=== PATIENT | female | born 1950 | race Caucasian/White ===

== ENCOUNTER 2017-03-25 15:02 | Emergency (ER) | payer BC | END 2017-03-25 16:53 | disposition home or self-care (01) | LOC: ER 15:02 | DX: S90.31XA Contusion of right foot, initial encounter (principal); F03.90 Unspecified dementia, unspecified severity, without behavioral disturbance, psychotic disturbance, mood disturbance, and anxiety; F10.99 Alcohol use, unspecified with unspecified alcohol-induced disorder; E11.9 Type 2 diabetes mellitus without complications; Z88.2 Allergy status to sulfonamides; X58.XXXA Exposure to other specified factors, initial encounter; Y93.89 Activity, other specified; Y92.89 Other specified places as the place of occurrence of the external cause; Y99.8 Other external cause status ==

== ENCOUNTER → 2017-05-08 | Outpatient (CLI) | payer BC, OTHER | LOC: MRI 08:18 | DX: R41.82 Altered mental status, unspecified (principal); I10 Essential (primary) hypertension; E11.9 Type 2 diabetes mellitus without complications; E78.5 Hyperlipidemia, unspecified; F03.90 Unspecified dementia, unspecified severity, without behavioral disturbance, psychotic disturbance, mood disturbance, and anxiety ==

== ENCOUNTER 2018-07-01 13:46 | Emergency (ER) | payer OTHER, BC ==
[~2018-07-01] VITALS: Ht 160 cm; Wt 69.8 kg
[2018-07-01 15:22] VITALS: BP 129/77
== END 2018-07-01 15:26 | disposition home or self-care (01) ==
LOC: ER 13:46
DX: S09.90XA Unspecified injury of head, initial encounter (principal); M25.511 Pain in right shoulder; F03.90 Unspecified dementia, unspecified severity, without behavioral disturbance, psychotic disturbance, mood disturbance, and anxiety; E11.9 Type 2 diabetes mellitus without complications; Z88.2 Allergy status to sulfonamides; W18.39XA Other fall on same level, initial encounter; Y93.01 Activity, walking, marching and hiking; Y92.481 Parking lot as the place of occurrence of the external cause; Y99.8 Other external cause status

== ENCOUNTER 2019-02-18 17:40 | Inpatient (IN) | payer BC, OTHER ==
[~2019-02-18] VITALS: Ht 165.1 cm; Wt 63.6 kg
[2019-02-18 17:50] VITALS: BP 145/78
[2019-02-18 19:21] LABS: ABSOLUTE NEUTROPHILS 3.2 thou/uL (1.4-8.2); BASOPHILS 1.5 % (0.0-2.0); EOSINOPHILS 1.8 % (0.0-3.0); HEMOGLOBIN 13.2 gm/dL (12.0-15.0); LYMPHOCYTES 29.2 % (24.0-44.0); MCH 32.1 pg (26.0-34.0); MCHC 34.7 g/dL (28.0-37.0); MCV 92.6 fL (80.0-100.0); MONOCYTES 7.8 % (1.0-8.0); PLATELET COUNT 266 thou/uL (150-400); POLYS 59.7 % (36.0-66.0); WBC 5.4 thou/uL (4.0-11.0)
[2019-02-18 19:24] LABS: CALCIUM 9.5 mg/dL (8.5-10.1); CREATININE 1.4 mg/dL (0.6-1.0); POTASSIUM 3.8 mmol/L (3.5-5.1)
[2019-02-18 22:38] LABS: URINE BILIRUBIN NEGATIVE (Negative); URINE BLOOD TRACE (Negative); URINE CLARITY CLEAR; URINE COLOR YELLOW; URINE GLUCOSE-RANDOM* NEGATIVE (Negative); URINE KETONES NEGATIVE (Negative); URINE LEUKOCYTES-REFLEX TRACE (Negative); URINE NITRITE-REFLEX NEGATIVE (Negative); URINE PROTEIN (DIPSTICK) NEGATIVE (Negative); URINE SPECIFIC GRAVITY <= 1.005 (1.005-1.035); URINE UROBILINOGEN 0.2 E.U./dl (0.2-1.0)
[2019-02-18 22:42] LABS: AMP/METHAMP Negative (Negative); BARBITURATES Negative (Negative); BENZODIAZEPINES Negative (Negative); COCAINE Negative (Negative); METHADONE Negative (Negative); OPIATES Negative (Negative); PCP Negative (Negative)
[2019-02-18 23:37] VITALS: BP 135/81
[2019-02-19 00:04] VITALS: BP 141/80
[2019-02-19] MEDS ORDERED: AMLODIPINE BESY10 MG PO (00:05)
[2019-02-19] MEDS ORDERED: ASPIR 8181 MG PO (00:18)
[2019-02-19] MEDS ORDERED: VITAMIN B-121000 MCG PO (00:20)
[2019-02-19] MEDS ORDERED: DETROL LA4 MG PO (00:24)
[2019-02-19] MEDS ORDERED: ARICEPT 5 MG TAB5 MG PO (00:26)
[2019-02-19] MEDS ORDERED: HYDROCHLOROTH12.5 M1 PO (00:27)
[2019-02-19] MEDS ORDERED: JANUVIA100 MG PO (00:29)
[2019-02-19] MEDS ORDERED: COZAAR 25 MG TA25 M1 PO (00:31)
[2019-02-19] MEDS ORDERED: NAMENDA 10 MG T10 MG PO (00:34)
[2019-02-19] MEDS ORDERED: SENNA8.6 MG PO (00:37)
[2019-02-19] MEDS ORDERED: ZOLOFT50 MG PO (00:39)
[2019-02-19] MEDS ORDERED: TRAZODONE HCL50 MG PO ×2 (00:41→00:42)
[2019-02-19] MEDS ORDERED: APAP650 PO (00:44)
[2019-02-19 01:05] VITALS: BP 141/80
--- NOTE | 2019-02-19 01:20 | NUR ---
ADMISSION NOTE: ARRIVED ON THE UNIT VIA WHEELCHAIR AND ER PERSONNEL. ASSISTED THE PT TO THE BED, ALERT ET CONFUSED AT TIMES. THE PT IS HERE WITH AGGRESSIVE BEHAVIOR AND ALZHEIMERS. THE PT HAS BEEN CALM ET COOPERATIVE WITH STAFF THIS AM. THE PT HAD BEEN AT [facility] PRIOR TO COMING HERE, SHE HAS BEEN HAVING COMBATIVE BEHAVIORS, SWINGING AND KICKING AT THE STAFF AT [facility]. SHE HAS BEEN RESISTIVE TO CARE FOR THE LAST MONTH. SHE HAS NOT BEEN EATING WELL FOR THE PAST MONTH. SHE WILL NOT ALLOW ANY HELP. SHE SEES A PSCHIATRIST EVERY 3 MONTHS, WHO IS DR. KENYA ANGELA, . SHE HAS BEEN FAIRLY HEALTHY. SHE HAD AN HISTORY OF A BRIEF PSYCHOTIC D/O IN MAR 2017 AND WAS AT [facility] FOR A SHORT TIME. SHE SEES DR. COLIN CHAMBERS. SHE HAS NOT FALLEN WITHIN THE LAST 30 DAYS. SHE IS A FALL RISK. HEART RATE REGULAR, LUNGS CLEAR BILATERALLY, RESP., EVEN, AND UNLABORED. +BS HEARD IN ALL 4 QUADRANTS. ABD SOFT ET NONTENDOR. +PP BILATERALLY. DENIES PAIN AT THIS TIME. STARTED ON 12 MINUTE CHECKS.
[2019-02-19] MEDS ORDERED: SENOKOT-S TABL1 EACH PO (05:57)
[2019-02-19] MEDS ORDERED: NAMENDA XR28 MG PO (06:00)
--- NOTE | 2019-02-19 06:32 | NUR ---
THE PT REFUSED TO TAKE HER AM MEDICATIONS THIS AM. THE PT SLEPT 3.8 HOURS LAST NIGHT.
--- NOTE | 2019-02-19 12:03 | NUR ---
PSYCHOSOCIAL ASSESSMENT Diagnosis: DEMENTIA W/BEHAVIORAL DISTRUBANCES W/ VIOLENT BEH Admit Date: 02/18/19 Psychiatrist: LAYO Symptoms associated with current admission: Violence/aggression Anxiety/panic Activity level change Depressed mood Labile mood/jacobo Appetite change Sleep disturbance Presenting problems: Pt was refusing care from [facility] staff. Pt was refusing assisting with ADl's Care, and medication. Pt kicked staff, and very combatative Precipitating Factors: Non-compliance psychothx Comments: Pt feels shame that she has to recieve assistance with care. History of High Risk Behavors: Hx violence/aggression Suicide Risk Factors: E A-Signs of alcohol/substance abuse w/ suicide ideation B-Recent suicidal thoughts or attempts C-Recent thoughts or attempts of harming someone else D-Altered mental status due to psychiatric/chem dep etiology E-The behavior exists - add comment PSYCHIATRIC HISTORY Age of onset: 68 Prior hospitalizations: 1-2 times hospitalized Hospital names and dates, if available: [facility] 2017 Most Recent Outpatient HX: Psychiatrist Additional information: Legal Status: DPOA Guardian/Conservatorship type: DPOA Contact name: Emerita Drummond Contact phone: [phone] Other: Name: Phone: Other legal issues: (Arrests/convictions Current Status) None P.O. Name and Phone #: FAMILY HISTORY Place of : [place], [place] Raised in: [place] # Siblings & order: Pt has two sibilings, eldest Describe relationships within family of origin: Pt is close to her sibilings, children, and Any psychiatric or substance abuse problems within family of origin: Y Has patient been sexually or physically abused, neglected or been taken advantage of financially? N Has the abuse been reported? N Other pertinent family information: Marital history/significant relationships: Domestic violence: Y Children ages & who is caring for them: Pt has one adult child Is child welfare involved? N Drug history: Pt has in the past had an alcohol addiction Alcohol Use: Frequency: Quantity: Have you ever felt you ought to Cut down on drinking? Have people Annoyed you by criticizing your drinking? Have you ever felt bad or Guilty about your drinking? Have you ever had a drink first thing in the morning to steady your nerves/get rid of a hangover(Eye beamster) CAGE TOTAL If CAGE score is 3 or more, notify provider for withdrawal orders! AXIS SCREENING TOOL Austin I Mood Disorders: Depression Austin II Personality/Mental Retardation: Austin III Medical Impairment: Constipation Dehydration DM HTN Hypothyroidism UTI Alzheimer's Austin IV Problem(s) with: Health care services Other psych/environ prob Austin V: 40-Major impairment Additional Austin comments: PERSONAL BACKGROUND Relevant cultural issues (ethnicity, values, beliefs, spiritual): Spiritual Christian: Episcopal Importance of gnosticist to patient: High What hobbies/interests does the patient have? Photography sew listen music paintings Cycling Sexual orientation (relevant impact to current treatment): Heterosexual : Where did you serve: Branch of service: Rank: Discharge status: Are you a combat ? Occupational/Work: Do you work? N Do you want to work? N How many hours do you work/week? 0 How many jobs have you had in the past 5 years? 0 Do you need assistance finding a job? N Does the patient need assistance in job training? N Source of income: Other SSA Does patient have a Payee? Y Payee name: Emerita Drummond Approximate monthly income: 1000 Does patient have adequate funds for next 30 days? Y Education background: Bachelor degree Highest grade completed: 12th grade Other Educational/training programs: Functional deficits: Explain functional deficits: Current living situation: Facility (B&C, SNF,ILF) Address/phone where pt. is living: [facility] Does the patient plan to continue there after DC? Yes Patient lives with: Unrelated adult Will family/significant other be involved in treatment? Other community support services utilized: Memory care setting Support System Available (family/friend) Name: Dario Drummond Relationship: Name: Ariel Agudelo Relationship: Son Name: Phone: Relationship: Patient strengths: Family support Motivated Insight Community support Patient's assets: Positive marriage Good self care Verbal Patient's weaknesses: Health problems Chronic hx mental illness Additional weaknesses: Pt is sad, and frustrated that she is losing her minds. Patient's perception of current medical social consultant/case management needs: PRELIMINARY DISCHARGE PLAN Discharge plan/Community resource contacts: Pt will d/c to [facility] Discharge needs: Pt will be transported by her to . Problems anticipated on discharge: Compliance w/ med regimen Comments: (factors affecting DC plan/pt. response/interventions) Pt will need continuance care with a psychiarist
[2019-02-19 14:10] VITALS: BP 145/76
--- NOTE | 2019-02-19 15:40 | NUR ---
PT CALM AND COOPERATIVE, SMILING, FAMILY CAME TO VISIT. PATIENT TOLERATING MEALS, PARTICIPATING IN GROUPS, AND TOOK MEDICATION WITHOUT ISSUE. PATIENT ALERT TO SELF. WILL CONTINUE TO MONITOR FOR SAFETY.
[2019-02-19 19:14] VITALS: BP 106/72
--- NOTE | 2019-02-20 00:45 | NUR ---
Care assumed of patient at 1900: Patient pleasant and cooperative. Patient laying in bed at start of shift. Patient has a perplexed look to her. When asked her name, patient stated "Maki [place]". Patient oriented to first name but not last name. When asked date, location, situation, patient was not able to focus or understand questions and started to have disorganized thoughts of speech. Patient encouraged to come to day room for HS snack. Patient interacting well with staff and peers. Ate 100% snack. Took meds whole without difficulty. Patient denies pain or discomfort. Patient then appeared somewhat restless and started to ambulate hallways and day room. Patient re-orientated several times. Patient appears to have difficulty understanding direction and re-orientation. Patient incontinent of bladder. Christy care provided and brief changed. Urine has strong odor, yellow in color. Patient assisted to bed when appeared tired and has been able to rest quietly in bed.
[2019-02-20 06:15] VITALS: BP 129/78
[2019-02-20 06:32] LABS: CALCIUM 9.2 mg/dL (8.5-10.1); CREATININE 1.5 mg/dL (0.6-1.0)
--- NOTE | 2019-02-20 09:29 | H ---
[facility] [place] [address] HISTORY AND PHYSICAL Name: CRISTINA ALVAREZ Room #: 528B-B ADM IN M.R.#: [id number] Admission: 02/18/19 ������������������ Attend Phys: David Bland DO Discharge: ������������������ Date of : 52 Report #: [id number] THIS REPORT FOR: //name// CC: David Lo DATE OF SERVICE: 02/19/2019 ATTENDING PHYSICIAN: David Bland DO PROFESSOR OF HISTORY: Asher Lo MD REASON FOR ADMISSION: Resistant, aggressive behavior at [facility]. SOURCES OF INFORMATION: Limited records from nursing facility. Discussion with her who is her DPOAMarycruz. HISTORY OF PRESENT ILLNESS: This is a 68-year-old female that unfortunately has suffered an early dementia. Her states symptomatology dates back 5 years, so age of 63. He reports she has been through an extensive workup including a number of different brain scans and is believed to be Alzheimer's etiology. She was placed at [facility] in 03/2017, currently in memory care there. The patient early on was easier management. As things have progressed, there has been deterioration in her behavior, most notably yesterday at residence, requiring assistance of care team members for ADLs. They recommended Geriatric Psych evaluation and treatment. On the , she was combative and with incontinence care, verbally aggressive to staff, resistant, requires assistance of 2 care managers. She had been refusing to take meds like donepezil, refused medications dating back to mid January. She was noted on the to be more combative and continues to refuse meals. Combative behaviors on 01/25/2019 that has bought a fall, particularly toileting. PAST MEDICAL HISTORY: According to ; type 2 diabetes mellitus; borderline hypertension; history of hyperlipidemia, now currently treated with statins; frequent falls. PAST SURGICAL HISTORY: Hysterectomy before they were . SOCIAL HISTORY: She was in 1989, third , has a stepson who lives in [place], is very supportive. FAMILY HISTORY: Father in 60s of [place]. Mother lived into her 80s, had dementia. ADDITIONAL SOCIAL HISTORY: Born and raised in [place], [place], 16 years of [address] [address] HISTORY AND PHYSICAL Name: CRISTINA ALVAREZ Room #: 528B-B [facility] IN [facility].#: [id number] Admission: 02/18/19 ������������������ Attend Phys: David Bland DO Discharge: ������������������ Date of : 52 Report #: [id number] moved to [place]. EDUCATIONAL HISTORY: Bachelor's degree radio and TV production from [employer]. She retired in 2006 from [employer]. No history. No physical, sexual or emotional trauma abuse history. LABORATORY DATA: Done in the ER last night. CBC was within normal limits except a slightly low RBC of 4.10. Chemistries within normal limits except BUN 23, creatinine 1.4, glucose 126. Urinalysis was negative except for trace blood. Toxicology was negative. No neuro imaging was done last night. PHYSICAL EXAMINATION: MUSCULOSKELETAL: Normal gait and station. MENTAL STATUS EXAMINATION: This is a well-developed, age-appropriate appearing female. Attention limited. Concentration limited. Speech: The patient has receptive and expressive aphasia, it is a fluent type. No psychomotor agitation or psychomotor retardation. Mood and affect congruent, euthymic, bright. Denied SI or HI. Denied hopelessness, helplessness. Memory noted to be impaired. Insight limited. Judgment limited. Fund of knowledge below average. FORMULATION: A 68-year-old female brought to [facility] from [facility]. She was directly admitted, well-established history of major neurocognitive disorder. DIAGNOSES: Major neurocognitive disorder, likely due to her Alzheimer disease with behavioral disturbance. Medical comorbidities including type 2 diabetes mellitus, was on Januvia; borderline hypertension. PLAN: Evaluate, stabilize, obtain collateral. I spoke with the at length risks, benefits and alternatives to treatment with an antipsychotic. We discussed including the risk of stroke and . We will start her on olanzapine 2.5 mg b.i.d. We will discontinue donepezil, continue memantine. We will discontinue oxybutynin due to its anticholinergic effect, reduce the sertraline to 25 mg daily due to impulsivity. Other medications are per the hospitalist. Estimated time spent on this evaluation is at least 60 minutes. STRENGTHS: She is insured, has supportive family. WEAKNESSES: Advance dementia. ��������������������������������������������� <ELECTRONICALLY SIGNED> ���������������������������������������� By: David Bland DO ��������������������������������������������� 02/20/19 0929 [id number] [id number] David Bland DO /nt
--- NOTE | 2019-02-20 12:07 | NUR ---
Notified during [facility] meeting this morning that pt with very poor po intake. "Picks at food." Provider at meeting thinking pt has receptive/expressive aphasia, with possible loss of executive functioning. Encouraged nursing staff to prompt pt, give cues, offer feeding assist to help pt connect steps at meals about what to do, how to eat, etc. MVI likely to be added to medication regimen. Will also start trial of oral nutrition supplement. Will offer Ensure enlive BID at breakfast, dinner. Although this is higher in carbs, pt likely eating so little and offers more kcals/protein. Follow-up planned 02/22.
--- NOTE | 2019-02-20 14:29 | NUR ---
TOWARDS POC PT VSS, PT CALM, COOPERATIVE. PT ABLE TO PARTICIPATE TO ACTIVITIES. WILL CONTINUE TO MONITOR.
[2019-02-20 15:06] VITALS: BP 124/66
[2019-02-20 19:30] VITALS: BP 105/58
[2019-02-20 19:33] VITALS: BP 105/58
[2019-02-21 00:16] VITALS: BP 105/58
--- NOTE | 2019-02-21 00:24 | NUR ---
PATIENT WAS SITTING UP IN DINING ROOM WHEN i CAME ON DUTY AT 1899. ASSESSMENT DONE AND C/O NECK HURTING FROM HAVING NECK BRACE ON. READJUSTED BRACE AND MADE SURE NOT RUBBING OR TOO TIGHT. TYLENOL 650MG GIVEN FOR 6/10 DISCOMFORT AT 2038. PATIENT TOOK MEDS WITH APPLESAUCE. QUETIAPINE 25MG GIVEN ALSO WITH TYLENOL D/T AGITAITION AND ANXIETY. PATIENT WAS BECOMING MORE NEGATIVE AND RESTLESS HE SAT UP IN HIS WC AND HAD TO BE COAXED TO TAKE HIS MEDS EVEN THOUGH HE REQUESTED THEM. PATIENT IS SLEEPING IN BED AT THIS TIME AND HAS HAD A LARGE HARD BM. PATIENT IS TURNING AND REPOSITIONING HIMSELF IN BED. BED IN LOW POSITION AND ALARMS ON. FREQUENT CHECKS BEING DONE TO MAINTAIN PATIENT SAFETY AND COMFORT.
--- NOTE | 2019-02-21 00:39 | NUR ---
PATIENT HAS BEEN IN BED SINCE I ARRIVED ON SHIFT AT 1900. SHE IS SMILING AND HAPPY. APHASIC. PLEASANT AND COOPERATIVE. PATIENT IS INCONTINENT. SHE DID FALL ASLEEP IN HER BED AFTER HER HS MEDS TONIGHT. PATIENT DENIES PAIN WHEN ASKED. NO FACIAL GRIMACING UPON PHYSICAL ASSESSMENT. YELLOW SAFETY SOCKS PLACED ON PATIENT. SHE HAD HER SHOES WITHOUT SOCKS ON WHEN I ARRIVED. BED ALARM ON AND BED IN LOW POSITION. FREQUENT CHECKS ON PATIENT TO MONITOR FOR SAFETY AND COMFORT. WILL CONTINUE TO MONITOR. PATIENT TOOK MEDS WHOLE AND WITHOUT HESITATION.
[2019-02-21 08:06] VITALS: BP 125/78
[2019-02-21 19:24] VITALS: BP 97/78
[2019-02-21 22:30] VITALS: BP 97/78
[2019-02-21 22:45] VITALS: BP 97/78
--- NOTE | 2019-02-22 00:16 | NUR ---
ASSUMED CARE @ 20:30. COOPERATED WITH ASSESSMENT, HS MEDS TAKEN WHOLE WITH WATER. RETIRED TO BED BY 21:45. BED IN LOW POSITION, WILL CONTINUE TO MONITOR Q 12 MINUTES FOR PATIENT SAFETY.
--- NOTE | 2019-02-22 05:36 | NUR ---
SLEPT 9.6 HOURS OVERNIGHT.
[2019-02-22 07:30] VITALS: BP 138/69
[2019-02-22 08:00] VITALS: BP 138/69
--- NOTE | 2019-02-22 09:30 | NUR ---
PT NEEDED REINFORCEMENT FOR TAKING PO MEDS. THIS NURSE SETS MEDS DOWN AND PT STATED THANK YOU AND DIDN'T TAKE MEDS. PT FINALLY TOOK MEDS WITH COAXING. PT NOT VERY TALKATIVE UNLESS APPROCHED. PT UP AD YULIYA WITH STEADY GAIT.
--- NOTE | 2019-02-22 15:16 | NUR ---
CATHRYN and Dr. Bland met with the pt Dario, sister Eli, and son Ariel over the phone to discuss wellbeing and healthcare. Dr. Bland diagnosed th pt with Major Neurocognitive Disorder with Behvaior Bisturbance. Pt will d/c to [facility]. Dr. Bland mention that he will make sure that the pt has anti-psychotic prescription for PRN, and order supplemental suppliments for appepite increase. Pt will be transported by her Emerita. CATHRYN will follow-up with pt upon d/c.
--- NOTE | 2019-02-22 15:32 | NUR ---
SW sent the d/c referreal to [facility]. Pt will d/c on February 25, 2019 at 11:30. CATHRYN will follow-up with [facility] on tomorrow.
[2019-02-22 19:43] VITALS: BP 118/71
--- NOTE | 2019-02-22 19:51 | NUR ---
ASSUMED CARE OF THE PT AT 1914 PM. ALERT ET CONFUSED AT TIMES. WALKS WITH A STEADY GAIT. DENIES PAIN AT THIS TIME. WALKS WITH A STEADY GAIT. REMAINS ON 12 MINUTE CHECKS FOR HER SAFETY.
--- NOTE | 2019-02-23 01:30 | NUR ---
THE PT TOOK HER HS MEDICATIONS WITHOUT ANY DIFFICULTY. JUST GAVE HER 2 PILLS AT A TIME WITH WATER. THE PT HAS BEEN LYING IN BED MOST OF THE SHIFT. REMAINS ON 12 MINUTE CHECKS FOR HER SAFETY.
--- NOTE | 2019-02-23 03:29 | NUR ---
THE PT APPEARS TO HAVE BEEN SLEEPING MOST OF THE NIGHT. RESP., EVEN, AND UNLABORED. SHE CUDDLES UP LIKE A BALL WHEN SHE IS IN BED, SHE FOLDS UP HER LINEN, PUTS IT BESIDE HERSELF IN THE BED. REMAINS ON 12 MINUTE CHECKS FOR HER SAFETY.
[2019-02-23 08:10] VITALS: BP 136/76
--- NOTE | 2019-02-23 09:00 | NUR ---
PT TOOK MEDS THIS AM WITH SOME ENCOURGMENT. PT WAS PUTTING MED CUP IN FOOD, HAD TO PUT MEDS FROM CUP TO MOUTH, THEN TOOK MEDS. PT NOT VERY TALKATIVE UNLESS TALKING TOO. PT STEADY ON FEET WALKING.
[2019-02-23 20:18] VITALS: BP 105/69
[2019-02-23 22:04] VITALS: BP 105/69
--- NOTE | 2019-02-24 04:34 | NUR ---
PT OUT IN DAY AREA WITH PEERS AT START OF SHIFT. CORDIAL AND COOPERATIVE. TOOK HS MEDS WITH ENCOURAGEMENT. ESCORTED TO BED AND SLEPT WELL THROUGH THE NIGHT TO THIS POINT.
[2019-02-24 09:23] VITALS: BP 159/84
--- NOTE | 2019-02-24 10:22 | NUR ---
Date of Admission: 02/18/19 Date of Activity Therapy Assessment:02/21/2019 Activity Goal: Pt to attend one Recreation Therapy group per day. Initial Goal:Pt to attend group to increase appropriate socialization and self esteem development. Weekly progress towards goal:On track Group participation level:Minimal Behaviors observed:Passive participation in most groups, confused, disoriented, when speaking words often come out in "word salad". Plan: Two groups per day
--- NOTE | 2019-02-24 11:47 | NUR ---
ASSUMED CARE OF PT AT 0700. PT SITTING UP IN DAYROOM AREA AT START OF SHIFT AND ATE MEALS IN DAYROOM. PT UP ADLIB IN HALLWAY WITH STEADY GAIT. NO DISTRES VOICED AND NO PHYSICAL COMPLAINTS VOICED. FAMLIY VISITED DURING VISITING HOURS. PT QUIET BUT DOES RESPOND WHEN APPROACHED OR QUESTION. ISOLATIVE WHEN IN DAYROOM DOESN'T SPONTANEOUSLY ENGAGE W/PEERS. WONDERING IN HALLS AND REQUIRES REDIRECTION AT TIMES TO STAY OUT OF PEERS ROOMS. ALERT AND ORIETED TO SELF/PLACE. WILL CONTINUE TO MONITOR THROUGHOUT SHIFT.
[2019-02-24 14:26] VITALS: BP 159/84
--- NOTE | 2019-02-24 17:48 | NUR ---
PT SPENT MAJORITY OF AFTERNOON UP IN DAYROOM AND AMBULATING IN HALLWAY W/STEADY GAIT. RESTED INTERMITTENTLY IN HER ROOM. FAMILY HERE VISITING IN AFTERNOON. PT COOPERATIVE AND NO ACUTE DISTRESS NOTED.
[2019-02-24 22:11] VITALS: BP 104/55
--- NOTE | 2019-02-24 23:20 | NUR ---
Care assumed of patient at 1915: Patient alert and oriented to person. Patient presents with flat affect, calm and cooperative. Patient has difficulty making eye contact. When staff gains eye contact, patient will occasionally smile. Patient has mumbled speech at times. Patient has disorganized thoughts. Word salad spoken at times. Patient denies SI/HI/AH/VH. No s/s of delusional or paranoia behaviors. Denies pain or discomfort. Took medication whole without difficulty. Sat in the day room for awhile and interacted well with staff and peers. Patient resting quietly in bed at this time.
[2019-02-25 16:00] VITALS: BP 105/60
[2019-02-25 19:46] VITALS: BP 129/77
--- NOTE | 2019-02-25 22:31 | NUR ---
Care assumed of patient at 1915: Patient laying in bed at start of shift. Patient encouraged to come to day room for interaction with staff and peers. Patient sits with other peers but does not interact much. Patient ate 100% snack. Patient alert and oriented x person. Patient confused and forgetful. Patient requires simple one step directions for completion of any task. Patient took HS medication without difficulty. Denies pain or discomfort. Patient assisted with toileting and dressing before bed. Patient has been resting quietly in bed at this time.
[2019-02-26 08:57] VITALS: BP 140/72
[2019-02-26] MEDS ORDERED: NORVASC10 MG PO (12:10)
[2019-02-26] MEDS ORDERED: COZAAR 50 MG TA50 M1 PO (12:11)
[2019-02-26] MEDS ORDERED: ZYPREXA 5 MG TAB5 M1 PO (12:12)
[2019-02-26] MEDS ORDERED: ZOLOFT25 MG PO (12:12)
[2019-02-26] MEDS ORDERED: SENNA-TIME S T1 EACH PO (12:13)
[2019-02-26] MEDS ORDERED: NAMENDA 5 MG TAB5 M1 PO (12:13)
[2019-02-26] MEDS ORDERED: TRADJENTA5 MG PO (12:14)
[2019-02-26] MEDS ORDERED: MULTIVITAMINS PO (12:15)
--- NOTE | 2019-02-26 13:41 | NUR ---
0700: Report rec from noc shift, care assumed. [id number]: Ambulatory with stand by assistance, gait slow/steady, oriented to name only, only able to follow short simple instructions, feeds self with set up assist, appetite poor, pt unable to follow instructions to swallow meds, medications crushed and placed in pudding (except Marinol, not crushed). Cooperative with staff, attending therapy group with minimal participation noted. Planning for discharge to [facility] today. 1300: to transport pt to [facility], discharge papers, scripts and inventory sheet completed. 1330: DC'd ambulatory accomp by and staff x1. 1335: Attempted to call report to [facility], message left for facility to call back for report.
--- NOTE | 2019-02-27 22:31 | D ---
[facility] [place] [address] DISCHARGE SUMMARY Name: CRISTINA ALVAREZ Room #: 528B-B [facility] IN M.R.#: [id number] Admission: 02/18/19 ������������������ Attend Phys: David Bland DO Discharge: 02/26/19 ������������������ Date of : 52 Report #: [id number] THIS REPORT FOR: //name// CC: David Lo DATE OF SERVICE: 02/26/2019 ATTENDING: Daivd Bland DO. CHIEF OF ANESTHESIOLOGY AT THE TIME OF DISCHARGE: Asher Lo MD DISCHARGE DIAGNOSES: Major neurocognitive disorder, likely due to Alzheimer's disease with behavioral disturbance, improved. Diabetes mellitus type 2, recent excellent A1c of 6.4. Also, remote history of substance use disorder for alcohol allegedly that dates back 30 years according to the . DISCHARGE PLAN: Discharged to [facility] for memory care. DISCHARGE MEDICATIONS: Amlodipine 10 mg p.o. daily for hypertension, losartan 100 mg p.o. daily for hypertension, sertraline 25 mg p.o. daily for depression, olanzapine 2.5 mg p.o. b.i.d. for mood stabilization, memantine 10 mg p.o. b.i.d. for cognitive enhancement, Senna-S 2 tabs p.o. b.i.d. for bowel motility, hold if diarrhea, Tradjenta 5 mg p.o. daily for diabetes, multivitamins 1 tab p.o. daily, defer the need for insulin sliding scale at the receiving facility. Blood sugars tend to be more labile in the hospital setting. Diabetic diet, requires 24/7 supervision and assistance. REASON FOR ADMISSION: As follows. A 68-year-old female brought to ED with worsening aggressive behaviors. The described that the patient has become combative with staff at [facility], poor appetite. HOSPITAL COURSE: The patient was admitted to Geriatric Psychiatry Unit. The patient was not violent, did not require physical or chemical restraint during hospitalization. To the best of my knowledge apparently, this is her first hospitalization. The nature of dementia was discussed with the and unfortunately, she has a tragic young onset meaning under 70s, so this will be classified as early onset. Additionally, the patient responded favorably to efforts to deal with her impulses, namely the initiation of olanzapine. PHYSICAL EXAMINATION: VITAL SIGNS: On the day of discharge are as follows: BP 140/72. The patient is afebrile. [facility] [address] [place] [address] DISCHARGE SUMMARY Name: CRISTINA ALVAREZ Room #: 528B-B [facility] IN [facility]#: [id number] Admission: 02/18/19 ������������������ Attend Phys: David Bland, Discharge: 02/26/19 ������������������ Date of : 52 Report #: [id number] MUSCULOSKELETAL: Normal gait and station. MENTAL STATUS EXAMINATION: This is a well-developed, fairly nourished female appearing stated age. The patient does have some hoarding behavior. Attention limited. Concentration limited. Speech reduced rate, perhaps reduced responsiveness to to questions. Thought content- largely unmeaningful as she has a mixed aphasia. Mood and affect congruent, constricted. Denied SI or HI. Only oriented to person. Insight limited. Judgment limited. Fund of knowledge below average. Prognosis for this patient is poor given the advanced dementia at the young age of 68 with decreased mobility. I think hospice services should be entertained by the . ��������������������������������������������� <ELECTRONICALLY SIGNED> ���������������������������������������� By: David Bland DO ��������������������������������������������� 02/27/192230 [id number] David Bland DO /nt
== END 2019-02-26 14:09 | DRG 57 ==
LOC: ER 17:40 → SBH 22:54 → EROBS 22:54 → SBH 22:54
PROVIDERS: Emergency Medicine; ADMIT Psychiatry & Neurology Psychiatry
DX: G30.9 Alzheimer's disease, unspecified (principal); F02.81 Dementia in other diseases classified elsewhere, unspecified severity, with behavioral disturbance; E11.9 Type 2 diabetes mellitus without complications; I10 Essential (primary) hypertension; E78.5 Hyperlipidemia, unspecified; Z90.710 Acquired absence of both cervix and uterus; Z79.82 Long term (current) use of aspirin; Z79.899 Other long term (current) drug therapy; Z88.2 Allergy status to sulfonamides; Z82.49 Family history of ischemic heart disease and other diseases of the circulatory system; Z81.8 Family history of other mental and behavioral disorders
CPT/HCPCS: 10880